=== PATIENT | male | born 1955 | race Caucasian/White ===

== ENCOUNTER 2025-06-02 07:13 | Day surgery (SDC) | payer BC ==
[~2025-06-02] VITALS: Ht 188 cm; Wt 90.2 kg
[~2025-06-02 07:13] MED LIST: FOLI1TAB11 PO; METH2.5T48 PO
[2025-06-02] MEDS ORDERED: LIDOCAINE 2% 100 MG/5 ML SDV (FOR ANES.) As Ordered ONE (08:22)
[2025-06-02 08:42] VITALS: TEMP 97.5
[2025-06-02 09:06] VITALS: BP 135/88; O2SAT 98
== END 2025-06-02 09:24 | disposition home or self-care (01) ==
LOC: M OPP 07:13
PROVIDERS: ATTEND Internal Medicine Gastroenterology
DX: Z12.11 Encounter for screening for malignant neoplasm of colon (principal); K64.0 First degree hemorrhoids; Z79.899 Other long term (current) drug therapy